=== PATIENT | male | born 1955 | race Hispanic/Latino ===

== ENCOUNTER 2018-08-05 09:43 | Emergency (ER) | payer SELFPAY ==
[2018-08-05 11:22] LABS: #Eosinphils 0.1 thou/uL (0.0-0.7); #Lymphocytes 2.3 thou/uL (1.20-3.40); #Monocytes 0.5 thou/uL (0.11-0.59); #Neutrophils 2.5 thou/uL (1.40-6.50); %Basophils 0.1 % (0.0-1.0); %Eosinophils 1.6 % (0.0-10.0); %Lymphocytes 43.5 % (21.0-51.0); %Monocytes 8.7 % (0.0-10.0); %Neutrophils 46.1 % (42.0-75.0); Hemoglobin 14.2 g/dL (14.0-18.0); Mean Corpuscular HGB CONC 34.1 g/dL (32.0-36.0); Mean Corpuscular Hemoglobin 32.4 pg (27.0-31.0); Mean Corpuscular Volume 95.2 fL (78.0-98.0); Mean Platelet Volume 9.4 fL (7.4-10.4); Platelet Count 150 thou/uL (130-400); RBC Distribution Width 12.4 % (11.5-14.5); Red Blood Cell (RBC) Count 4.39 mill/uL (4.70-6.10); White Blood Cell (WBC) Count 5.4 thou/uL (4.8-10.8)
[2018-08-05 11:41] LABS: ALT (SGPT) 92 U/L (8-55); AST (SGOT) 63 U/L (5-34); Albumin 3.5 g/dL (3.4-4.8); Alkaline Phosphatase 188 U/L (40-150); Anion Gap 14 mmol/L (10-20); BUN (Urea Nitrogen) 12 mg/dL (8.4-25.7); Bilirubin, Total 0.5 mg/dL (0.2-1.2); Calc. Creatinine Clearance 0 mL/min (70-130); Calcium 9.2 mg/dL (7.8-10.44); Carbon Dioxide 25 mmol/L (23-31); Chloride 99 mmol/L (98-107); Estimated GFR-MDRD 81; Globulin 4.5 g/dL (2.4-3.5); Glucose 438 mg/dL (80-115); Sodium 134 mmol/L (136-145)
[2018-08-05] MEDS ORDERED: Ketorolac Tromethamine 30 MG/ML VIAL ONE (12:47)
--- NOTE | 2018-08-05 13:26 | CT ---
ABDOMEN CT WITH CONTRAST CT PELVIS WITH CONTRAST: HISTORY: Abdominal pain, onset this morning. Hernia repair 5 years ago. COMPARISON: None. FINDINGS: ABDOMEN CT: Dependent atelectatic changes in the lung bases. Heart size is normal. No significant pericardial f luid. The descending thoracic aorta and abdominal aorta have a normal caliber. No periureteral fat stranding. Portal vein is patent. Gallbladder is surgically absent. Minimal nodularity of the hepatic parenchyma is noted. Hypoattenuation of the liver is identified. Spleen, pancreas, and adrenal glands are unremarkable. No gastrohepatic, retrocrural, or periportal lymphadenopathy. Symmetric enhancement of the kidneys. There are subcentimeter hypodensities in the left renal cortex which cannot be further characterized. There is an exophytic hypodensity emanating from the upper p ole of the left kidney with attenuation coefficient of 31 Hounsfield units. This lesion measures 0.9 x 1.5 x 2.2 cm. Bilaterally, no obstructive uropathy. No mesenteric mass, lymphadenopathy, free air, or free fluid. Gastric mucosa, duodenum, and small bowel loops are unremarkable. Ileocecal junction is normal. Fec alizaiton of the distal ileum likely due to incompetent ileocecal valve. Inadequate contrast opacifi cation of the colon. Occasional diverticulum. No diverticulitis. CT PELVIS: Unremarkable urinary bladder. No pelvic mass, lymphadenopathy, free air, or free fluid. Mild prosta tic hypertrophy. Mild mucosal thickening in the urinary bladder likely due to inadequate distention. There is a left inguinal hernia containing mesenteric fat. Small right inguinal hernia containing fa t is also noted. No lytic or blastic lesions in the osseous structures. IMPRESSION: 1. Indeterminate hypodense lesion in the left kidney. Nonemergent abdomen MRI vs renal mass protoco l CT can be performed. 2. No evidence of bowel obstruction. 3. Probable hepatic steatosis with mild nodularity of the liver. Correlate for early sclerotic davalos ge. 4. Diverticulosis, without evidence of diverticulitis. 5. Bilateral inguinal hernia, left greater than right. No evidence of bowel obstruction. POS: [facility]
== END 2018-08-05 13:31 | disposition home or self-care (01) ==
LOC: ERS 09:43
DX: K40.90 Unilateral inguinal hernia, without obstruction or gangrene, not specified as recurrent (principal); E11.9 Type 2 diabetes mellitus without complications; Z79.84 Long term (current) use of oral hypoglycemic drugs
CPT/HCPCS: 36415; 74177; 80053; 85025; 96374; J1885

== ENCOUNTER 2019-05-11 10:33 | Emergency (ER) | payer SELFPAY ==
[2019-05-11 13:20] LABS: #Eosinphils 0.1 thou/uL (0.0-0.7); #Lymphocytes 2.3 thou/uL (1.20-3.40); #Monocytes 0.5 thou/uL (0.11-0.59); #Neutrophils 2.2 thou/uL (1.40-6.50); %Basophils 0.5 % (0.0-1.0); %Eosinophils 1.5 % (0.0-10.0); %Lymphocytes 44.7 % (21.0-51.0); %Monocytes 9.4 % (0.0-10.0); Hemoglobin 13.5 g/dL (14.0-18.0); Mean Corpuscular HGB CONC 34.7 g/dL (32.0-36.0); Mean Corpuscular Hemoglobin 33.3 pg (27.0-31.0); Mean Corpuscular Volume 96.2 fL (78.0-98.0); Mean Platelet Volume 8.9 fL (7.4-10.4); Platelet Count 122 thou/uL (130-400); RBC Distribution Width 12.7 % (11.5-14.5); Red Blood Cell (RBC) Count 4.06 mill/uL (4.70-6.10); White Blood Cell (WBC) Count 5.1 thou/uL (4.8-10.8)
[2019-05-11] MEDS ORDERED: Morphine 4 MG/ML VIAL ONE (13:31)
[2019-05-11] MEDS ORDERED: Ondansetron PF 4 MG/2 ML Vial ONE (13:31)
[2019-05-11 13:47] LABS: ALT (SGPT) 118 U/L (8-55); AST (SGOT) 99 U/L (5-34); Albumin 3.7 g/dL (3.4-4.8); Alkaline Phosphatase 147 U/L (40-110); Anion Gap 11 mmol/L (10-20); BUN (Urea Nitrogen) 12 mg/dL (8.4-25.7); Bilirubin, Total 0.6 mg/dL (0.2-1.2); Calc. Creatinine Clearance 0 mL/min (70-130); Calcium 8.8 mg/dL (7.8-10.44); Carbon Dioxide 28 mmol/L (23-31); Chloride 100 mmol/L (98-107); Estimated GFR-MDRD 90; Globulin 3.9 g/dL (2.4-3.5); Glucose 243 mg/dL (80-115); Lipase 71 U/L (8-78); Potassium 3.9 mmol/L (3.5-5.1); Protein, Total 7.6 g/dL (5.8-8.1); Sodium 135 mmol/L (136-145)
[2019-05-11 14:58] LABS: Bilirubin Negative (Negative); Blood, Urine Negative (Negative); Clarity Clear (Clear); Glucose, Urine (Dipstick) 500 mg/dL (Negative); Leukocyte Negative Leu/uL (Negative); Nitrite Negative (Negative); Protein, Urine (Dipstick) Negative (Neg-Trace); Urobilinogen 6 mg/dL (Less than 2)
== END 2019-05-11 15:16 | disposition home or self-care (01) ==
LOC: ERS 10:33
DX: K40.90 Unilateral inguinal hernia, without obstruction or gangrene, not specified as recurrent (principal); E11.9 Type 2 diabetes mellitus without complications; N40.0 Benign prostatic hyperplasia without lower urinary tract symptoms; Z79.84 Long term (current) use of oral hypoglycemic drugs
CPT/HCPCS: 36415; 80053; 81003; 83690; 85025; 86850; 86900; 86901; 94760; 96361; 96374; 96375; J2270; J2405

== ENCOUNTER 2020-05-07 07:12 | Outpatient (CLI) | payer OTHER ==
--- NOTE | 2020-05-07 07:59 | ULT ---
EXAM: US Abdominal CLINICAL HISTORY: Abnormal laboratory values. COMPARISON: None. FINDINGS: Pancreas: The head and proximal pancreatic body have a normal echotexture. IVC: Not adequately demonstrated Aorta: Visualized aorta has a normal caliber. Liver:Heterogeneous parenchymal echotexture which may be due to hepatic steatosis or hepatocellular d isease. Limited evaluation for hepatic masses and intrahepatic biliary dilatation. Right hepatic lobe measures 19.9 cm. Gallbladder: Surgically absent Walker's sign:Not applicable CBD: Poorly visualized Portal vein: Patent. Appropriate directional flow. Right kidney: Normal cortical echotexture. No hydronephrosis Right kidney measuring 5.3 x 5.5 x 12. 1 cm in length. Left kidney: Normal cortical echotexture. No hydronephrosis. There appears to be a cyst in the left k idney measuring 1.4 x 1.1 x 1.4 cm. There may be an adjacent intraparenchymal calcification. Second cyst measures 1.3 x 1.2 x 1.4 cm Left kidney measuring 11.7 x 5.9 x 5.6 cm in length Spleen: Normal echotexture, measuring 11.7 x 11.4 x 4.4 cm IMPRESSION: 1. Heterogeneous echotexture liver which may represent hepatic steatosis or hepatocellular disease. I f there is concern for hepatic masses, additional imaging such as abdomen MRI can be performed.
== END 2020-05-07 07:13 | disposition home or self-care (01) ==
LOC: BICULT 07:12
PROVIDERS: ATTEND Family Medicine
DX: R94.5 Abnormal results of liver function studies (principal); R93.2 Abnormal findings on diagnostic imaging of liver and biliary tract
CPT/HCPCS: 93975

== ENCOUNTER 2022-06-12 16:17 | Emergency (ER) | payer SELFPAY | END 2022-06-12 21:13 | disposition home or self-care (01) | LOC: ERS 16:17 | DX: R04.0 Epistaxis (principal); E11.9 Type 2 diabetes mellitus without complications; Z79.82 Long term (current) use of aspirin | CPT/HCPCS: 70450 ==